=== PATIENT | male | born 1940 | race Caucasian/White ===

== ENCOUNTER 2016-04-12 04:29 | Emergency (ER) | payer MEDICARE, MEDICAID ==
[~2016-04-12] VITALS: Ht 172.7 cm; Wt 72.6 kg
[~2016-04-12 04:29] MED LIST: PROZAC10 MG ORAL
[2016-04-12 04:45] VITALS: BP 183/116
--- NOTE | 2016-04-12 04:49 | Emergency Room Report ---
History of Present Illness General Chief Complaint: Generalized Weakness Source: Patient Present Illness HPI This is a 75-year-old male with no given past medical history. He presents with confusion. Patient has a history of anxiety insomnia. He takes Ambien and Xanax. He said he had trouble sleeping for last few days. He claimed that he did not take any Ambien. His cousin thinks that he did. He said that he had at 8:30 AM appointment with his doctor. He drove there tonight. He said that he parked his car and walked to the office. No one was there. In reality , he was at the [employer] on [facility]. Supposedly he fell hit his head. He was wobbly. Someone called 911. Patient denies suicidal thought homicidal thought. Denies any drug use or alcohol use. No other injury. He really thought it was 8:30 a.m. In reality is 4:30 AM. Allergies: Coded Allergies: No Known Allergies (Unverified , 04/12/16) Patient History Past Medical History: see triage record, old chart reviewed, psych hx Past Surgical History: other Pertinent Family History: none Social History: Denies: drug use Immunizations: other Reviewed Nursing Documentation: PMH: Agreed, PSxH: Agreed Nursing Documentation-PMH History Of Psychiatric Problem: Yes Review of Systems Eye: Denies: blurred vision, eye pain ENT: Denies: ear pain, nose congestion, throat swelling Respiratory: Denies: cough, shortness of breath Cardiovascular: Denies: chest pain, palpitations Gastrointestinal: Denies: abdominal pain, diarrhea, nausea, vomiting Musculoskeletal: Denies: back pain, joint pain Skin: Denies: rash Neurological: Denies: headache, numbness Endocrine: Denies: increased thirst, increased urine Hematologic/Lymphatic: Denies: easy bruising All Other Systems: negative except mentioned in HPI Physical Exam Vital Signs Date Time Temp Pulse Resp B/P Pulse Ox O2 Delivery O2 Flow Rate FiO2 04/12/16 04:25 98.6 89 18 183/116 96 Room Air vitals with hypertension Sp02 EP Interpretation: reviewed, normal General Appearance: well appearing, no apparent distress, alert Head: normocephalic, atraumatic Eyes: bilateral eye EOMI, bilateral eye PERRL ENT: hearing grossly normal, normal pharynx Neck: full range of motion, supple, no meningismus Respiratory: chest non-tender, lungs clear, normal breath sounds Cardiovascular #1: regular rate, rhythm, no murmur Gastrointestinal: normal bowel sounds, non tender, no mass, no organomegaly, no bruit, non-distended Musculoskeletal: back normal, gait/station normal, normal range of motion Neurologic: alert Psychiatric: mood/affect normal Skin: warm/dry Procedures Critical Care Time Critical Care Time Critical care is mandated in this patient who presented with intracranial hemorrhage secondary to uncontrolled hypertension. Patient require my urgent intervention to attenuate the risks of neurovascular collapse which may lead to cardiovascular collapse and . Critical care time is 35 minutes excluding any reportable procedure. Critical care time included evaluation, multiple reevaluation, looking at old charts, interpreting laboratory and diagnostic data , discussing case with patient and family and consultants, and charting. Medical Decision Making Diagnostic Impression: Primary Impression: Nontraumatic thalamic hemorrhage Additional Impressions: Hypertensive emergency, no CHF Head injury, acute, without loss of consciousness Qualified Codes: S09.90XA - Unspecified injury of head, initial encounter Chronic kidney disease (CKD) Qualified Codes: N18.9 - Chronic kidney disease, unspecified Proteinuria ER Course Patient presents with confusion secondary to a thalamic bleed. This is secondary to his uncontrolled hypertension. His hemorrhagic stroke as a cause of his fall and not the other way around. He has minimal trauma to the head. No focal deficit. He has mild confusion with repetitive questioning. No focal deficit. Will control blood pressure. I discussed the case with his primary care Dr., Dr. Mooney. He is agreeable with the plan to transfer the patient to [facility]. I contacted [facility] to discuss case with neurosurgeon. I discussed case with ABELARDO Justin at [facility]. She accepted the transfer. Pt will be sent to [facility] via 911 if we cant send patient in timely manner. Laboratory Tests Test 04/12/16 05:00 White Blood Count 11.5 K/UL (4.8-10.8) H Red Blood Count 5.84 M/UL (4.70-6.10) Hemoglobin 17.4 G/DL (14.2-18.0) Hematocrit 51.9 % (42.0-52.0) Mean Corpuscular Volume 89 FL (80-99) Mean Corpuscular Hemoglobin 29.8 PG (27.0-31.0) Mean Corpuscular Hemoglobin Concent 33.6 G/DL (32.0-36.0) Red Cell Distribution Width 12.4 % (11.6-14.8) Platelet Count 220 K/UL (150-450) Mean Platelet Volume 8.0 FL (6.5-10.1) Neutrophils (%) (Auto) 83.1 % (45.0-75.0) H Lymphocytes (%) (Auto) 9.9 % (20.0-45.0) L Monocytes (%) (Auto) 5.7 % (1.0-10.0) Eosinophils (%) (Auto) 0.4 % (0.0-3.0) Basophils (%) (Auto) 0.9 % (0.0-2.0) Urine Color Yellow Urine Appearance Clear Urine pH 7 (4.5-8.0) Urine Specific [place] 1.010 (1.005-1.035) Urine Protein 3+ (NEGATIVE) H Urine Glucose (UA) Negative (NEGATIVE) Urine Ketones Negative (NEGATIVE) Urine Occult Blood 1+ (NEGATIVE) H Urine Nitrite Negative (NEGATIVE) Urine Bilirubin Negative (NEGATIVE) Urine Urobilinogen Normal MG/DL (0.0-1.0) Urine Leukocyte Esterase Negative (NEGATIVE) Urine RBC 2-4 /HPF (0 - 0) H Urine WBC 2-4 /HPF (0 - 0) Urine Squamous Epithelial Cells None /LPF (NONE/OCC) Urine Bacteria Few /HPF (NONE) Urine Hyaline Casts 0-2 /LPF (NONE) H Urine Mucus Few /LPF (NONE/OCC) H Sodium Level 141 mEQ/L (135-145) Potassium Level 3.9 mEQ/L (3.4-4.9) Chloride Level 100 mEQ/L (98-107) Carbon Dioxide Level 24 mEQ/L (20-30) Anion Gap 17 (5-15) H Blood Urea Nitrogen 17 mg/dL (7-23) Creatinine 2.0 mg/dL (0.7-1.2) H Estimat Glomerular Filtration Rate mL/min (>60) Glucose Level 124 mg/dL (74-106) H Calcium Level 9.7 mg/dL (8.6-10.2) Total Bilirubin 1.5 mg/dL (0.0-1.2) H Direct Bilirubin Pending Aspartate Amino Transf (AST/SGOT) 15 U/L (5-40) Alanine Aminotransferase (ALT/SGPT) 12 U/L (3-41) Alkaline Phosphatase 82 U/L (40-129) Ammonia Pending Troponin I < 0.30 ng/mL (<=0.30) Pro-B-Type Natriuretic Peptide 1228 pg/mL (0-125) H Total Protein 7.6 g/dL (6.6-8.7) Albumin 4.5 g/dL (3.5-5.2) Globulin 3.1 g/dL Albumin/Globulin Ratio 1.4 (1.0-2.7) Urine Opiates Screen Negative (NEGATIVE) Urine Barbiturates Screen Negative (NEGATIVE) Phencyclidine (PCP) Screen Negative (NEGATIVE) Urine Amphetamines Screen Negative (NEGATIVE) Urine Benzodiazepines Screen Negative (NEGATIVE) Urine Cocaine Screen Negative (NEGATIVE) Urine Marijuana (THC) Screen Negative (NEGATIVE) Serum Alcohol < 10 mg/dL Lab Results Impression labs show elevated creatinine EKG Diagnostic Results Rate: normal Rhythm: NSR ST Segments: no acute changes Rhythm Strip Diag. Results EP Interpretation: yes Rate: 75 Rhythm: NSR, no PVC's, no ectopy Chest X-Ray Diagnostic Results EP Interpretation: Yes Findings: no consolidation, no effusion, no pneumothorax, no acute cardiopulmonary disease Number of Views: 1 CT/MRI/US Diagnostic Results CT/MRI/US Diagnostic Results : Imaging Test Ordered: CT head Impression Read by radiologist. Right thalamic hemorrhage with intraventricular extension. Bleed measure 1.7 x 1 x 1.7 cm. No hydrocephalus. Last Vital Signs Date Time Temp Pulse Resp B/P Pulse Ox O2 Delivery O2 Flow Rate FiO2 04/12/16 04:25 98.6 89 18 183/116 96 Room Air Status: improved Disposition: XFER SHT-TRM HOSP Condition: Critical Referrals: NOT CHOSEN [place]/,REFERRING (PCP) DANIEL NAVAS M.D. Apr 12, 2016 04:48
[2016-04-12 05:22] LABS: APPEARANCE,URINE CLEAR; BASOPHILS % (AUTO) 0.9 % (0.0-2.0); EOSINOPHILS % (AUTO) 0.4 % (0.0-3.0); KETONES,URINE NEGATIVE (NEGATIVE); LEUKOCYTE ESTERASE ,URINE NEGATIVE (NEGATIVE); LYMPHOCYTES % (AUTO) 9.9 % (20.0-45.0); MEAN CORPUSCULAR HEMOGLOBIN 29.8 PG (27.0-31.0); MEAN CORPUSCULAR HGB CONC 33.6 G/DL (32.0-36.0); MEAN CORPUSCULAR VOLUME 89 FL (80-99); MONOCYTES % (AUTO) 5.7 % (1.0-10.0); NEUTROPHILS % (AUTO) 83.1 % (45.0-75.0); NITRITE,URINE NEGATIVE (NEGATIVE); PH,URINE 7 (4.5-8.0); PLATELET COUNT 220 K/UL (150-450); PROTEIN,URINE 3+ (NEGATIVE); RED BLOOD COUNT 5.84 M/UL (4.70-6.10); RED CELL DISTRIBUTION WIDTH 12.4 % (11.6-14.8); UROBILINOGEN,URINE NORMAL MG/DL (0.0-1.0); WHITE BLOOD COUNT 11.5 K/UL (4.8-10.8)
[2016-04-12 05:32] LABS: BACTERIA,URINE FEW /HPF; HYALINE CASTS, URINE 0-2 /LPF; MUCUS,URINE FEW /LPF (NONE/OCC)
[2016-04-12] MEDS ORDERED: niCARdipine HCl 200 ML IV ONE (05:34)
[2016-04-12 05:36] LABS: ALANINE AMINOTRANSFERASE 12 U/L (3-41); ALBUMIN/GLOBULIN RATIO 1.4 (1.0-2.7); ALCOHOL < 10 mg/dL; ANION GAP 17 (5-15); ASPARTATE AMINO TRANSFERASE 15 U/L (5-40); CALCIUM 9.7 mg/dL (8.6-10.2); CARBON DIOXIDE 24 mEQ/L (20-30); CHLORIDE 100 mEQ/L (98-107); HEMOLYSIS 8; POTASSIUM 3.9 mEQ/L (3.4-4.9); SODIUM 141 mEQ/L (135-145); TOTAL PROTEIN 7.6 g/dL (6.6-8.7)
[2016-04-12 05:45] VITALS: BP 178/105
[2016-04-12] MEDS ORDERED: Labetalol 5mg/ml 20ml vial IV ONE (05:45)
[2016-04-12] MEDS ORDERED: niCARdipine HCl 200 ML IV SCH (05:45)
[2016-04-12 05:49] LABS: TROPONIN I < 0.30 ng/mL (<=0.30)
[2016-04-12 06:44] VITALS: BP 158/105
[2016-04-12 06:52] LABS: AMMONIA 24 umol/L (16-60)
[2016-04-12 06:58] LABS: BILIRUBIN,DIRECT 0.2 mg/dL (0.1-0.3)
--- NOTE | 2016-04-12 09:04 | Diagnostic Imaging Report ---
Indications: Chest pain Technique: Portable AP chest Findings: Comparison: None Cardiac silhouette upper limits of normal size. Pulmonary vasculature within normal limits. Visualized portions of lungs and pleura are grossly clear. Thoracic aorta elongated/ectatic. IMPRESSION: No evidence of acute cardiopulmonary disease Borderline cardiomegaly, perhaps artifactually enhanced by suboptimal inspiration. Aortic elongation versus ectasia. Associated aneurysm not excludable. Consider CT angiography for further evaluation as clinically indicated.
--- NOTE | 2016-04-12 12:57 | Diagnostic Imaging Report ---
Indications: Altered mental status Technique: Continuous helical CT imaging of the brain was performed with automatic exposure control on a Siemens sensation [address] scanner. Axial and coronal images were reconstructed at 5 mm slice thickness and interval. CTDI volume(s): 70 mGy Total DLP: 1438 mGy-cm Findings: Comparison: None. 2 cm circumscribed hyperattenuating mass with thin hypoattenuating rim is centered in the anteromedial aspect of the right thalamus. It extends to the margin of the body of the third ventricle, focally compressed at, with extension of hyperattenuating material/acute blood throughout ventricular system, latter slightly dilated. Circumscribed foci of low attenuation/parenchymal loss are present in the bilateral basal ganglia and right torres radiata regions. Confluent low attenuation is present throughout the bilateral cerebral periventricular and deep white matter. Ventricles, cisterns, sulci are diffusely prominent.. No evidence of midline shift, or increased intracranial pressure. Bone window images are unremarkable. Visualized paranasal sinuses and mastoid air cells are clear. IMPRESSION: 2 cm acute hematoma centered in the right thalamus, likely hypertensive in origin . Associated rupture into ventricular system with mild mass effect upon the third ventricle, slight ventricular dilation, no midline shift.. Old lacunar infarcts bilateral basal ganglia, right torres radiata Bilateral cerebral periventricular and deepwhite matter low attenuation, nonspecific, likely chronic microvascular ischemic in nature Atrophy This correlates with [facility] preliminary report. The CT scanner at [facility] is accredited by the [employer] and the scans are performed using protocols designed to limit radiation exposure to as low as reasonably achievable to attain images of sufficient resolution adequate for diagnostic evaluation.
--- NOTE | 2016-04-19 14:10 | Cardiology Report ---
APPROVED REPORT EKG Measurement Heart [id number] Sinus rhythm with 1st degree AV block Voltage criteria for left ventricular hypertrophy Abnormal ECG
== END 2016-04-12 06:44 | disposition short-term general hospital (02) ==
LOC: EDBD 04:29 → EMR 04:35
DX: I61.8 Other nontraumatic intracerebral hemorrhage (principal); I16.1 Hypertensive emergency; S09.90XA Unspecified injury of head, initial encounter; I12.9 Hypertensive chronic kidney disease with stage 1 through stage 4 chronic kidney disease, or unspecified chronic kidney disease; N18.9 Chronic kidney disease, unspecified; R80.9 Proteinuria, unspecified; W18.30XA Fall on same level, unspecified, initial encounter; Y92.251 Museum as the place of occurrence of the external cause; Y99.8 Other external cause status
CPT/HCPCS: 36415; 70450; 71010; 80053; 80300; 81001; 82140; 82248; 83880; 84484; 85025; 93005; 96374; 96375; 99291; G0480; 80329